=== PATIENT | female | born 1975 | race Caucasian/White ===

== ENCOUNTER → 2016-08-10 | Outpatient (CLI) | payer OTHER ==
[~2016-08-10] MED LIST: IBUP600T44 PO; OXYC-57 PO; PRENTAB26 PO
== END | disposition home or self-care (01) ==
LOC: C.PATHSPEC 17:44
PROVIDERS: ATTEND Obstetrics & Gynecology
DX: E28.2 Polycystic ovarian syndrome (principal); N91.1 Secondary amenorrhea

== ENCOUNTER → 2016-08-17 | Outpatient (CLI) | payer OTHER ==
[2016-08-17 09:44] LABS: GLUCOSE,FASTING 93 mg/dl (70-99)
[2016-08-17 09:55] LABS: CALCULATED INSULIN SENSITIVITY 0.298; GLUCOSE LOG 1.9685; INSULIN FASTING 24.2 mU/L (3-25); INSULIN LOG 1.3838; THYROXINE (T4) 8.7 mcg/dl (4.5-10.9)
[2016-08-17 09:56] LABS: PROLACTIN 6.5 ng/mL
[2016-08-17 09:57] LABS: ALKALINE PHOSPHATASE 43 U/L (45-117); ALT/SGPT 26 U/L (12-78); AST/SGOT 11 U/L (15-37)
== END | disposition home or self-care (01) ==
LOC: C.LAB1850 08:00
PROVIDERS: ATTEND Obstetrics & Gynecology
DX: E28.2 Polycystic ovarian syndrome (principal); N91.1 Secondary amenorrhea